=== PATIENT | female | born 1950 | race Caucasian/White ===

== ENCOUNTER 2021-12-02 14:57 | Emergency (ER) | payer MEDICARE, SELFPAY ==
--- NOTE | ~2021-12-02 | XR_ITS ---
EXAMINATION: XR knee LT 3V DATE: 12/02/2021 15:48 INDICATION: Left knee pain TECHNIQUE: Four views of the left knee were obtained. COMPARISON: None. FINDINGS: The bones are osteopenic which limits sensitivity for fracture. There is anterior soft tiss ue swelling of the knee. No definite fracture is identified. There is moderate osteoarthritis of the knee. A loose body is noted. There is a moderate size knee joint effusion. IMPRESSION: 1. Soft tissue swelling and moderate size knee joint effusion without acute osseous abnormality ident ified, sensitivity limited by osteopenia. Reviewed, dictated and finalized at location B. IMPRESSION: 1. Soft tissue swelling and moderate size knee joint effusion without acute oss eous abnormality identified, sensitivity limited by osteopenia.
[2021-12-02 15:17] VITALS: BP 146/65; PULSE 99; RESP 16; TEMP 36.8; O2SAT 97
--- NOTE | 2021-12-02 17:00 | ED.LOWEXIN ---
HPI - Extremity Injury (Lower) General Chief Complaint: Extremity Injury, Lower Stated Complaint: left knee pain after fall yesterday Time Seen by Provider: 12/02/21 16:35 Source: RN notes reviewed History of Present Illness HPI Narrative: Patient presents emergency department from home for fall. Patient states that she is visiting in town from [place] as her daughter has been having brain surgery states that yesterday she was walking when her foot got caught on the carpet and she fell landing on her left knee states initially she is able get up and walk and had no difficulty her she states when she woke up this morning she had increased swelling and was unable to ambulate secondary to the swelling she states she is unable to fully flex or extend her knee because of the swelling she denies striking her head she denies any other trauma or injury denies any other symptoms at this time states she has been taking Tylenol at home for the pain Related Data Allergies Allergy/AdvReac Type Severity Reaction Status Date / Time No Known Allergies Allergy Verified 12/02/21 15:28 Review of Systems Review of Systems: Gen.: Denies fevers or chills Musculoskeletal: See HPI Neuro: Denies numbness, tingling, weakness Skin: Denies rash Endo: Denies DM PMFSH Past Medical History Medical History (Updated 12/02/21 @ 17:03 by Oral Gallegos DO) Hypertension Social History Social History (Updated 12/02/21 @ 17:01 by Oral Gallegos DO) Smoking status: Never smoker Exam Narrative: APPEARANCE: No acute distress, nontoxic, resting in bed Eyes: EOMI HEENT: Normocephalic, atraumatic, RESPIRATORY: No respiratory distress MUSCULOSKELETAl: Tender palpation of the left anterior lateral and posterior knee swelling present no ecchymosis unable to fully extend knee secondary to pain unable to flex rhythm 45 degrees no tenderness left ankle or hip dorsalis pedis pulse 2+ neurovascular intact NEURO: Awake and alert. Following commands, speech normal, no focal deficits SKIN:: Warm, dry. Normal Color no rash or lesions Course Course Emergency Course: Discussed with Dr. Sullivan agrees with plan for Andrew wrap knee immobilizer and crutches with follow-up as an outpatient Discussed with patient results of workup and diagnosis. Discussed need for follow-up with primary care, proper use of medication, and reasons to return to the emergency department. Patient understands and agrees to current treatment plan Vital Signs Vital signs: Vital Signs Temperature 98.3 F 12/02/21 15:17 Pulse Rate 99 12/02/21 15:17 Respiratory Rate 16 12/02/21 15:17 Blood Pressure 146/65 H 12/02/21 15:17 Pulse Oximetry 97 12/02/21 15:17 Temperature 98.3 F 12/02/21 15:17 Pulse Rate 99 12/02/21 15:17 Respiratory Rate 16 12/02/21 15:17 Blood Pressure 146/65 H 12/02/21 15:17 Pulse Oximetry 97 12/02/21 15:17 MDM - Extremity Injury (Lower) Imaging Data Radiologist's impression: ITS Impressions Knee X-Ray 12/02/21 15:53 IMPRESSION: 1. Soft tissue swelling and moderate size knee joint effusion without acute osseous abnormality identified, sensitivity limited by osteopenia. Discharge Plan Discharge Clinical Impression: Contusion of knee, left Patient Disposition: Home, Self-Care Condition: Stable Instructions: Antibiotic Form, Contusion in Adults (ED), P.R.I.C.E. Treatment (ED) Additional Instructions: Return for increasing pain numbness or tingling in extremities or any other symptoms or concern Prescriptions: New hydrocodone-acetaminophen 5-325 mg tablet 1 tablet PO .q6 PRN (Reason: pain) Qty: 8 RF: 0 Follow-up/Referrals: Lj Sullivan MD [Physician] - (Follow-up in 3 to 4 days for further orthopedic treatment and evaluation) PHYSICIAN,RAMP JOCKEY [Primary Care Provider] - Time of Disposition: 17:03
== END 2021-12-02 17:50 | disposition home or self-care (01) ==
PROVIDERS: Emergency Provider Emergency Medicine
DX: S80.02XA Contusion of left knee, initial encounter (principal); I10 Essential (primary) hypertension; W18.09XA Striking against other object with subsequent fall, initial encounter
CPT/HCPCS: 73562; 99283